=== PATIENT | female | born 1995 | race Caucasian/White ===

== ENCOUNTER 2017-03-14 11:30 | Observation (INO) | payer OTHER ==
[~2017-03-14] VITALS: Ht 157.5 cm; Wt 68.0 kg
[2017-03-14] MEDS ORDERED: PRENATAL VITAMI1 TA2 PO (11:51)
[2017-03-14 12:01] VITALS: BP 122/74
[2017-03-14] MEDS ORDERED: LACTATED RINGERS 1,000 ML IV SCH (13:50)
[2017-03-14] MEDS ORDERED: OXYTOCIN 10 UNITS/ML VIAL IM SCH (13:50)
== END 2017-03-14 14:30 | disposition home or self-care (01) ==
LOC: MLD 11:30 → OBSVTOIN 11:30 → INTOOBSV 11:30
PROVIDERS: ADMIT Obstetrics & Gynecology; ATTEND Obstetrics & Gynecology
DX: O26.893 Other specified pregnancy related conditions, third trimester (principal); M54.9 Dorsalgia, unspecified; R10.9 Unspecified abdominal pain; Z3A.38 38 weeks gestation of pregnancy
CPT/HCPCS: 76805; G0378; J7120; Q0092

== ENCOUNTER 2017-03-14 18:14 | Inpatient (IN) | payer OTHER ==
[~2017-03-14] VITALS: Ht 157.5 cm; Wt 68.0 kg
[~2017-03-14 18:14] MED LIST: PRENATAL VITAMI1 TA2 PO
[2017-03-14] MEDS ORDERED: OXYTOCIN 10 UNITS/ML VIAL IM SCH (19:00)
[2017-03-14 20:51] VITALS: BP 122/80
[2017-03-14] MEDS ORDERED: BUPIVACAINE 0.125%/NS PREMIX 250 ML ONE (22:11)
[2017-03-14] MEDS ORDERED: AMPICILLIN 2,000 MG in NACL 0.9% 100 ML IV SCH (23:05)
[2017-03-14] MEDS ORDERED: AMPICILLIN 2,000 MG VIAL ONE (23:38)
[2017-03-15] MEDS ORDERED: AMPICILLIN 1,000 MG VIAL ONE ×3 (03:47→23:57)
[2017-03-15] MEDS: AMPICILLIN 1,000 MG in NACL 0.9% 50 ML IV SCH ×2 (03:47→07:42)
[2017-03-15] MEDS: LACTATED RINGERS 1,000 ML IV SCH ×2 (07:39→15:41)
--- NOTE | 2017-03-15 08:05 | NUR ---
PATIENT HAS BEEN SCREENED AND CATEGORIZED LOW NUTRITION RISK. PATIENT WILL BE SEEN WITHIN 7 DAYS OF ADMISSION. 03/21/[address]
[2017-03-15] MEDS ORDERED: OXYTOCIN 20 UNITS/LR PREMIX 1,000 ML IV ONE (14:19)
[2017-03-15] MEDS ORDERED: OXYTOCIN 20 UNITS/LR PREMIX 1,000 ML IV SCH (14:25)
[2017-03-15] MEDS ORDERED: ROPIVACAINE 0.2%/NS PREMIX 250 ML EPI ONE (14:38)
[2017-03-15] MEDS ORDERED: AMPICILLIN 2,000 MG VIAL ONE (20:22)
[2017-03-15] MEDS: AMPICILLIN 2,000 MG in NACL 0.9% 100 ML IV SCH (20:35)
[2017-03-15] MEDS ORDERED: DEXT 5% / LACT RING 1,000 ML IV SCH (23:30)
[2017-03-15] MEDS ORDERED: NALBUPHINE HYDROCHLORIDE 10 MG/ML VIAL ONE (23:56)
[2017-03-16] MEDS ORDERED: NALBUPHINE 10 MG/ML AMP IVP PRN
[2017-03-16] MEDS: AMPICILLIN 2,000 MG in NACL 0.9% 100 ML IV SCH ×2 (00:02→03:39)
[2017-03-16] MEDS ORDERED: OXYTOCIN 20 UNITS in DEXT 5% / LACT RING 1,000 ML IV SCH (03:00)
[2017-03-16] MEDS ORDERED: OXYTOCIN 10 UNITS/ML VIAL ONE ×2 (03:01→04:33)
[2017-03-16] MEDS ORDERED: NALBUPHINE 10 MG/ML AMP IVP SCH (03:35)
[2017-03-16] MEDS ORDERED: AMPICILLIN 2,000 MG VIAL ONE (03:35)
[2017-03-16] MEDS ORDERED: NALBUPHINE HYDROCHLORIDE 10 MG/ML VIAL ONE (03:35)
[2017-03-16] MEDS ORDERED: OXYTOCIN 20 UNITS/LR PREMIX 1,000 ML IV SCH (09:31)
[2017-03-16] MEDS ORDERED: BISACODYL 5 MG TABEC PO PRN (09:35)
[2017-03-16] MEDS ORDERED: BENZOCAINE/MENTHOL 20%-0.5% 60 GM CAN TP PRN (09:35)
[2017-03-16] MEDS ORDERED: ACETAMINOPHEN 325 MG TAB PO PRN (09:35)
[2017-03-16] MEDS ORDERED: MEASLES, MUMPS, AND RUBELLA 1 VIAL SQVAC PRN (09:35)
[2017-03-16] MEDS ORDERED: DOCUSATE SODIUM 100 MG GELCAP PO PRN (09:35)
[2017-03-16] MEDS ORDERED: WITCH HAZEL 40 PAD PACKAGE TP PRN (09:35)
[2017-03-16] MEDS ORDERED: oxyCODONE/APAP 5/325 MG 1 TAB TAB ONE (10:19)
[2017-03-16] MEDS: oxyCODONE/APAP 5/325 MG 1 TAB TAB PO PRN (10:23)
[2017-03-18] MEDS: oxyCODONE/APAP 5/325 MG 1 TAB TAB PO PRN (01:44)
[2017-03-18 21:18] VITALS: BP 127/83
== END 2017-03-18 23:45 | disposition home or self-care (01) | DRG 560 ==
LOC: MLD 18:14 → MFCC 03-16 15:47
PROVIDERS: ADMIT Obstetrics & Gynecology; ATTEND Obstetrics & Gynecology
PROC: 10E0XZZ Delivery of Products of Conception, External Approach (ICD-10-PCS; principal; 2017-03-16)
PROC: 10907ZC Drainage of Amniotic Fluid, Therapeutic from Products of Conception, Via Natural or Artificial Opening (ICD-10-PCS; 2017-03-16)
PROC: 00HU33Z Insertion of Infusion Device into Spinal Canal, Percutaneous Approach (ICD-10-PCS; 2017-03-16)
PROC: 3E0R3CZ (ICD-10-PCS; 2017-03-16)
PROC: 3E0234Z Introduction of Serum, Toxoid and Vaccine into Muscle, Percutaneous Approach (ICD-10-PCS; 2017-03-16)
DX: O45.93 Premature separation of placenta, unspecified, third trimester (principal); O69.3XX0 Labor and delivery complicated by short cord, not applicable or unspecified; O70.9 Perineal laceration during delivery, unspecified; Z37.0 Single live birth; Z3A.39 39 weeks gestation of pregnancy; Z23 Encounter for immunization